=== PATIENT | male | born 1980 | race African-American/Black ===

== ENCOUNTER 2019-03-19 08:50 | Emergency (ER) | payer SELFPAY ==
--- NOTE | 2019-03-19 08:44 | ER Report ---
History and Physical Time Seen By MD: 08:40 HPI/ROS CHIEF COMPLAINT: Headache, neck pain HISTORY OF PRESENT ILLNESS: Patient is a 38-year-old male here with complaints of headache, neck pain which started shortly prior to arrival while patient was at a gas station in [facility]. Patient does have a history of hypertension, not currently treated with antihypertensives. Patient describes developing acute onset of severe headache and neck pain after having eating. Denies trauma. Patient is alert and oriented at time of evaluation, moving all extremities spontaneously. Patient is afebrile, hemodynamically stable at time of evaluation. REVIEW OF SYSTEMS: Constitutional: No fever, no chills. Eyes: No discharge. ENT: No sore throat. Cardiovascular: No chest pain, no palpitations. Respiratory: No cough, no shortness of breath. Gastrointestinal: No abdominal pain, + nausea and vomiting. Genitourinary: No hematuria. Musculoskeletal: No back pain. + Neck pain Skin: No rashes. Neurological: + Severe headache globally. Allergies: Coded Allergies: No Known Drug Allergies (Unverified , 03/19/19) Constitutional Vital Sign - Last 24 Hours 03/19/19 03/19/19 03/19/19 03/19/19 08:46 08:50 08:51 09:00 Temp 98.4 Pulse 90 102 91 Resp 16 31 B/P (MAP) 193/137 178/133 (148) 173/133 (146) Pulse Ox 96 98 O2 Delivery Room Air 03/19/19 03/19/19 03/19/19 03/19/19 09:06 09:10 09:20 09:29 Pulse 81 86 Resp 8 11 B/P (MAP) 191/143 (159) 186/116 (139) 195/144 (161) 194/143 (160) Pulse Ox 96 96 03/19/19 03/19/19 03/19/19 03/19/19 09:30 09:36 09:40 09:40 Pulse 90 90 Resp 12 25 B/P (MAP) 187/135 (152) 192/171 (178) Pulse Ox 95 87 O2 Flow Rate 2.0 Physical Exam General Appearance: Patient is in severe distress with complaints of severe headache and severe neck pain Eyes: Pupils equal and round no pallor or injection. ENT, Mouth: Mucous membranes are moist. Respiratory: There are no retractions, lungs are clear to auscultation. Cardiovascular: Regular rate and rhythm. Gastrointestinal: Abdomen is soft and non tender, no masses, bowel sounds normal. Neurological: Patient is alert and oriented, moving all extremities, pupils are 3 and reactive, cranial nerves intact Skin: Warm and dry, no rashes. Musculoskeletal: Neck is supple non tender. Extremities are nontender, nonswollen and have full range of motion. DIFFERENTIAL DIAGNOSIS: After history and physical exam differential diagnosis was considered for headache including but not limited to subarachnoid hemorrhage, migraine headache, tension headache and infectious causes such as meningitis, pharyngitis and sinusitis. Medical Decision Making Data Points Result Diagram: 03/19/19 0850 03/19/19 0850 Laboratory Hematology Test 03/19/19 08:50 White Blood Count 9.9 k/uL (4.5-11.0) Red Blood Count 5.22 M/uL (4.00-5.60) Hemoglobin 14.8 g/dL (14.0-18.0) Hematocrit 44.3 % (42.0-52.0) Mean Corpuscular Volume 84.8 fL (80.0-96.0) Mean Corpuscular Hemoglobin 28.3 pg (26.0-33.0) Mean Corpuscular Hemoglobin Concent 33.3 g/dL (32.0-36.0) Red Cell Distribution Width 14.0 % (11.5-14.5) Platelet Count 289 K/uL (150-450) Mean Platelet Volume 8.7 fL (7.2-11.1) Neutrophils (%) (Auto) 53.0 % (39.4-72.5) Lymphocytes (%) (Auto) 33.8 % (17.6-49.6) Monocytes (%) (Auto) 9.9 % (4.1-12.4) Eosinophils (%) (Auto) 1.9 % (0.4-6.7) Basophils (%) (Auto) 1.4 % (0.3-1.4) Nucleated RBC Relative Count (auto) 0.0 /100WBC Neutrophils # (Auto) 5.2 K/uL (2.0-7.4) Lymphocytes # (Auto) 3.3 K/uL (1.3-3.6) Monocytes # (Auto) 1.0 K/uL (0.3-1.0) Eosinophils # (Auto) 0.2 K/uL (0.0-0.5) Basophils # (Auto) 0.1 K/uL (0.0-0.1) Nucleated RBC Absolute Count (auto) 0.00 K/uL Chemistry Test 03/19/19 08:50 Sodium Level 139 mmol/L (137-145) Potassium Level 3.3 mmol/L (3.5-5.0) Chloride Level 102 mmol/L (98-107) Carbon Dioxide Level 24 mmol/L (22-30) Blood Urea Nitrogen 11 mg/dl (9-21) Creatinine 0.90 mg/dl (0.66-1.25) Glomerular Filtration Rate Calc > 60.0 Random Glucose 141 mg/dl (75-110) Lactate 3.3 mmol/L (0.7-2.1) Calcium Level 9.3 mg/dl (8.4-10.2) Total Bilirubin 0.5 mg/dl (0.2-1.3) Aspartate Amino Transf (AST/SGOT) 28 U/L (0-35) Alanine Aminotransferase (ALT/SGPT) 30 U/L (0-56) Alkaline Phosphatase 71 U/L (0-126) Troponin I < 0.012 ng/ml Total Protein 7.9 g/dl (6.3-8.2) Albumin 4.4 g/dl (3.5-5.0) Lipase 144 U/L (23-300) Coagulation Test 03/19/19 09:28 Prothrombin Time 11.9 seconds (12.0-14.4) Prothromb Time International Ratio 0.88 Activated Partial Thromboplast Time 24 seconds (23-35) EKG/Imaging Imaging CT imaging of the head ED Course/Re-evaluation ED Course Patient is a 38-year-old male here with complaints of acute onset of severe headache which started shortly prior to arrival while patient was at a [place] [facility]. Patient denied trauma. Patient was neurovascularly intact at time of evaluation, alert and oriented, cranial nerves intact. Pupils were [address] imaging was completed shortly after arrival and patient was identified to have a subarachnoid hemorrhage likely secondary to a cerebral aneurysm. Patient was initially found to be hypertensive and was bolused 2 with labetalol 20 mg, nicardipine infusion was then initiated. I discussed the patient with Dr. horne with neurosurgery at [facility] who accepted the patient in transfer. Fentanyl was administered for analgesia. Patient's blood pressure was titrated to: Systolic goal less than 140 Patient was hemodynamically stable at time of transport via fixed wing. Decision to Disposition Date: Mar 19, 2019 Decision to Disposition Time: 10:30 Depart Departure Latest Vital Signs Vital Signs Date Time Temp Pulse Resp B/P (MAP) Pulse Ox O2 Delivery O2 Flow Rate FiO2 03/19/19 09:40 90 25 192/171 (178) 87 03/19/19 09:40 2.0 03/19/19 08:46 98.4 Room Air Impression: Primary Impression: Subarachnoid hemorrhage Condition: Critical Disposition: [facility] KADI MCNEIL DO Mar 19, 2019 08:44
[~2019-03-19 08:50] MED LIST: LABETALOL HCL 100 MG/20ML VIAL IVP ONE; LABETALOL HCL 100 MG/20ML VIAL ONE; NS(*) 0.9% 1000 ML BAG 1,000 ML IV ONE; ONDANSETRON 4 MG/2 ML VIAL IVP ONE
[2019-03-19 09:03] LABS: PLATELET COUNT, AUTOMATED 289 K/uL (150-450)
[2019-03-19 09:40] VITALS: BP 192/171
[2019-03-19] MEDS ORDERED: NICARDIPINE(*) 20MG/NS 200 ML 200 ML IV ONE (09:50)
[2019-03-19] MEDS ORDERED: fentaNYL CITR 100 MCG/2 ML AMP IVP ONE (09:55)
[2019-03-19 10:16] LABS: INR 0.88
--- NOTE | 2019-03-19 12:32 | EKG ---
FACILITY: [facility] [place] PATIENT NAME: RADHA XIONG : [id number] MR: [id number]: [id number] EXAM DATE: ORDERING PHYSICIAN: KADI MCNEIL TECHNOLOGIST: CHAY Alicia Reason : Blood Pressure : / mmHG Vent. Rate : 093 BPM Atrial Rate : 080 BPM P-R Int : 000 ms QRS Dur : 094 ms QT Int : 378 ms P-R-T Axes : 000 031 023 degrees QTc Int : 469 ms Atrial fibrillation Voltage criteria for left ventricular hypertrophy Decreased R wave progression anteriorly Nonspecific ST findings Prolonged QT Abnormal ECG No previous ECGs available Confirmed by HILLARY LOCKE ([id number] on 03/19/2019 12:47:35 PM Referred By: EWA Confirmed By:HILLARY LOCKE
== END 2019-03-19 10:11 | disposition short-term general hospital (02) ==
LOC: ER 08:58
DX: I60.9 Nontraumatic subarachnoid hemorrhage, unspecified (principal)
CPT/HCPCS: 70450; 82375; 82803; 83605; 83690; 84484; 85025; 85610; 85730; 93005; 96374; 96375; 99285; J2405; J3010; J7030; 82040; 82247; 82310; 82374; 82435; 82565; 82947; 84075; 84132; 84155; 84295; 84450; 84460; 84520

== ENCOUNTER → 2019-03-19 | Outpatient (CLI) | payer SELFPAY | LOC: AMB 08:18 | PROVIDERS: ATTEND Nurse Practitioner | DX: R51 Headache (principal); R11.0 Nausea; R61 Generalized hyperhidrosis | CPT/HCPCS: A0425; A0427 ==

== ENCOUNTER → 2019-03-19 | Outpatient (REF) | LOC: AMB 10:01 | PROVIDERS: ATTEND Nurse Practitioner | DX: Z02.9 Encounter for administrative examinations, unspecified (principal) | CPT/HCPCS: A0425; A0428 ==